=== PATIENT | female | born 1960 | race Two or more races ===

== ENCOUNTER 2024-08-30 00:36 | Inpatient (IN) | payer BC, OTHER ==
[~2024-08-30] VITALS: Ht 152.4 cm; Wt 70.5 kg
--- NOTE | 2024-08-30 02:23 | ED.PDOC ---
History of Present Illness HPI Comments 63 y/o overweight F, with no pertinent medical history, presents with c/c hypertension, with associated left chest wall pain, shortness of breath, lightheadedness, headache, and blurry vision. Patient reports on 1x month history of symptoms and coming to the ED, today, under advice of her PCP after checking her blood pressure at home at 207/88. No prior history of HTN or any medication use. She states being monitored by her aforementioned PCP for hypertension following previous visit for symptoms 2x week ago. 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 Denies any nausea, vomiting, fever, chills, or further associated symptoms. Upon arrival to ED triage, patient had a blood pressure of 184//59. 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 History: Denies all NEON SIGN INSTALLER Hx Family History Family History: Unknown Social History Smoker: Cigarettes Alcohol: Occasionally Drugs: Denies Drug Use Lives In: Home All Other Systems: Reviewed and Negative (Comprehensive systems review obtained and negative except for what is stated in the HPI.) Physical Exam General Appearance: No Apparent Distress, Normal HEENT: Normal ENT Inspection, Pharynx Normal, TMs Normal Neck: Full Range of Motion, Non-Tender, Normal, Normal Inspection Respiratory: Lungs Clear, No Accessory Muscle Use, No Respiratory Distress, Normal Breath Sounds Cardiovascular: No Edema, No JVD, No Murmur, No Gallop, Normal Peripheral Pulses, Regular Rate/Rhythm Breast Exam: Deferred Gastrointestinal: No Organomegaly, Non Tender, No Pulsatile Mass, Normal Bowel Sounds, Soft Genitalia: Deferred Pelvic: Deferred Rectal: Deferred Extremities: No calf tenderness, Normal capillary refill, Normal inspection, Normal range of motion, Non-tender, No pedal edema Musculoskeletal : Location: Left Extremity Location: Chest (chest wall ) Apperance: Normal, Other (relief of pain with pressure placement over left chest wall ) Neurologic: Alert, nurse plastics II-XII nml as Tested, No Motor Deficits, Normal Affect, Normal Mood, No Sensory Deficits Cerebellar Function: Normal Reflexes: Normal Skin: Dry, Normal Color, Warm Lymphatic: No Adenopathy Was a procedure done? Was a procedure done?: No EKG EKG : Pulse Rate (adult): 64 [place]: Normal Cardiac Rhythm: NSR Block: None Hypertrophy: None ST: Normal Differential Dx Considerations may include: hypertensive emergency, dehydration, electrolyte imbalance, IL, PE, ACS, URI, PNA, angina, among others X-Ray, Labs, Meds, VS Vital Signs Date Time Temp Pulse Resp B/P (MAP) Pulse Ox O2 Delivery O2 Flow Rate FiO2 08/30/24 02:23 64 08/30/24 02:21 63 08/30/24 01:30 64 08/30/24 00:36 97.7 67 18 184/59 (100) 97 97.7 Lab Test 08/30/24 02:08 Range/Units White Blood Count Pending Red Blood Count Pending Hemoglobin Pending Hematocrit Pending Mean Corpuscular Volume Pending Mean Corpuscular Hemoglobin Pending Mean Corpuscular Hemoglobin Concent Pending Red Cell Distribution Width Pending Platelet Count Pending Mean Platelet Volume Pending Neutrophils (%) (Auto) Pending Lymphocytes (%) (Auto) Pending Monocytes (%) (Auto) Pending Basophils (%) (Auto) Pending Neutrophils # (Auto) Pending Lymphocytes # (Auto) Pending Monocytes # (Auto) Pending Sodium Level Pending Potassium Level Pending Chloride Level Pending Carbon Dioxide Level Pending Anion Gap Pending Blood Urea Nitrogen Pending Creatinine Pending Glomerular Filtration Rate Calc Pending BUN/Creatinine Ratio Pending Serum Glucose Pending Calcium Level Pending Total Bilirubin Pending Aspartate Amino Transferase (AST) Pending Alanine Aminotransferase (ALT) Pending Alkaline Phosphatase Pending Troponin I High Sensitivity Pending Total Protein Pending Albumin Pending [place] [id number] Ph: [phone] DIAGNOSTIC IMAGING Diagnostic Imaging Report : [id number] Signed PATIENT: REFUGIO VILLEGAS ACCT: [id number] UNIT: [id number] : 1960 LOC: ER ROOM / BED: / AGE / SEX: 63 / F ADM STATUS: REG ER SERVICE [id number] ORDERING PHYSICIAN: JAMES UMANZOR PROCEDURE(s): CXR1 - CHEST XRAY 1 VIEW REASON: cp ORDER NUMBER(s): [id number], ACCESSION NUMBER(s): [id number] CHEST RADIOGRAPH Indication: cp Technique: Single frontal view of the chest was obtained COMPARISON: None FINDINGS: Lines and Tubes: None Lungs: Clear Pleura: No effusion. No pneumothorax. Cardiomediastinal contours: Unremarkable Bones: Unremarkable IMPRESSION: 1. No acute disease. ATED BY: ANKUR HERNANDEZ MD DICTATED DATE/TIME: 08/30/24228 SIGNED BY: ANKUR HERNANDEZ MD SIGNED DATE/TIME: 08/30/24228 CC: Time of 1ST Reevaluation: 02:30 Reevaluation 1ST: Unchanged Patient Education/Counseling: Diagnosis, Treatment, Other (need for admission ) Family Education/Counseling: No Family Present Assigned to Dr. guardado Additional Information Previous visits reviewed: December 11, 2015 encounter for metacarpal fracture The following tests were ordered, and results were reviewed by me: EKG, CBC, BMP, troponin, CXR Additional Information was gathered from interviewing the following independent historians: N/A I reviewed and agreed with the following test results read by other providers: CXR I discussed treatment and results with medical personnel and: patient SEPSIS Sepsis Screen Date sepsis recognized/suspect: Aug 30, 2024 Time Sepsis recognized/suspect: 35 Recent Procedure: No On Antibiotic Therapy: No Respiratory Rate >20: No Heart Rate >90: No Temp<36 C (96.8 F) or >38.3 C: No SBP <90 or MAP <65 mmHG: No New Acute Mental Status Change: No Is the patient on CPAP, BIPAP,: No Physician Orders Electrocardigram (08/30/24 01:34) Electrocardigram (08/30/24 02:34) Electrocardigram (08/30/24 04:34) Urinalysis (08/30/24 02:06) Comprehensive Metabolic Panel (08/30/24 02:03) Complete Blood Count (08/30/24 02:03) Troponin-I Hs (08/30/24 02:03) Chest Xray 1 View (08/30/24 02:03) Troponin-I Hs (08/30/24 03:03) Troponin-I Hs (08/30/24 05:03) Vital Signs Date Time Temp Pulse Resp B/P (MAP) Pulse Ox O2 Delivery O2 Flow Rate FiO2 08/30/24 02:23 64 08/30/24 02:21 63 08/30/24 01:30 64 08/30/24 00:36 97.7 67 18 184/59 (100) 97 97.7 Laboratory Tests Test 08/30/24 02:08 White Blood Count Pending Critical Care Note Critical Care Time?: No Stability Stability form required: No Heart Score Heart Score: Heart Score Response (Comments) Value History Moderate Suspicious 1 EKG Normal 0 Age 45-64 1 Risk Factors No known risk factors 0 Total 2 I personally scribed for JAMES UMANZORP ([email or web address]) on 08/30/24 at 02:23. Electronically submitted by Nasir Morris ([email or web address]). I personally scribed for JAMES UMANZOR PLATER APPRENTICE ([email or web address]) on 08/30/24 at 02:56. Electronically submitted by Nasir Morris ([email or web address]). JAMES UMANZOR PLATER APPRENTICE Aug 30, 2024 02:23
[2024-08-30 02:27] LABS: Hematocrit 42.6 % (36.0-46.0); Hemoglobin 14.6 g/dL (12.2-16.2); Mean Corpuscular Hemoglobin 30.6 pg (28.0-32.0); Mean Corpuscular Volume 89.2 fL (80.0-100.0); Nucleated Red Blood Cells % 0.1 %
--- NOTE | 2024-08-30 02:31 | DVH ---
CHEST RADIOGRAPH Indication: cp Technique: Single frontal view of the chest was obtained COMPARISON: None FINDINGS: Lines and Tubes: None Lungs: Clear Pleura: No effusion. No pneumothorax. Cardiomediastinal contours: Unremarkable Bones: Unremarkable IMPRESSION: 1. No acute disease.
[2024-08-30 02:43] LABS: Alanine Aminotransferase 39 U/L (7-40); Alkaline Phosphatase 87 U/L (46-116); Anion Gap 10 (5-15); BUN/Creatinine Ratio 15.2 (10.0-20.0); Blood Urea Nitrogen 10 mg/dL (9-23); Calcium 9.5 mg/dL (8.7-10.4); Carbon Dioxide 24 mmol/L (20-31); Chloride 106 mmol/L (98-107); Potassium 4.1 mmol/L (3.5-5.1); Sodium 140 mmol/L (136-145); Total Protein 7.4 g/dL (5.7-8.2)
[2024-08-30 02:44] LABS: Bilirubin, Total 0.4 mg/dL (0.2-1.0)
[2024-08-30 02:59] LABS: Albumin 4.8 g/dL (3.2-4.8); Glucose 132 mg/dL (74-106)
--- NOTE | 2024-08-30 03:24 | ECG ---
[facility] Test Date: 2024-08-30 Test Time: 01:30:57 Pat Name: REFUGIO VILLEGAS Department: ER Room: 0214T Gender: F Sales Architect: GLENYS : 1960 Requested By: EMERGENCY EMERGENCY Order Number: [id number] Reading MD: Memo Esqueda Measurements Intervals [place] Rate: 64 P: 56 VT: 122 QRS: 74 QRSD: 88 T: 50 QT: 403 QTc: 416 Interpretive Statements Sinus rhythm Electronically Signed On 08-31-2024 16:59:36 PDT by Memo Esqueda Please click the below link to view image of tracing.
--- NOTE | 2024-08-30 03:24 | ECG ---
[facility] Test Date: 2024-08-30 Test Time: 02:21:40 Pat Name: REFUGIO VILLEGAS Department: ED Room: 0214T Gender: F Physician Office Clin Asst: SUZANNE : 1960 Requested By: EMERGENCY EMERGENCY Order Number: [id number] Reading MD: Memo Esqueda Measurements Intervals [place] Rate: 63 P: 57 VT: 126 QRS: 78 QRSD: 92 T: 60 QT: 413 QTc: 423 Interpretive Statements Sinus rhythm Electronically Signed On 08-31-2024 16:59:37 PDT by Memo Esqueda Please click the below link to view image of tracing.
[2024-08-30 06:32] LABS: Urine Protein, UAD Negative (Negative)
[2024-08-30] MEDS ORDERED: DOCUSATE SOD 100 MG CAP PO PRN (07:15)
[2024-08-30] MEDS ORDERED: NITROGLYCERIN 0.4 MG SL TAB SL PRN (07:15)
[2024-08-30] MEDS ORDERED: ONDANSETRON HCL 4 MG/2 ML VIAL IV PRN (07:15)
[2024-08-30] MEDS ORDERED: MORPHINE SULFATE INJ 2 MG/ml SYRG IV PRN (07:15)
--- NOTE | 2024-08-30 07:43 | DVHHP2 ---
History of Present Illness Reason for Visit: High blood pressure History of Present Illness Carina Delvalle is a 63-year-old female with no significant past medical history, who came to the hospital for high blood pressure. About 1 month ago the patient began experiencing headaches, bilateral ankle edema, and blurred vision. She went to her primary care provider and found that she was having high blood pressure, SBP in the 180's. Her primary care provider did not start her on any medications, she told her to make lifestyle changes and to stop all salt. Patient was reassessed in 1 and 2 weeks from there. After 2 weeks her blood pressure was improving with SBP in 150's and her symptoms were intermittent. Her primary care provider told her she was not going to start her on any medications and to continue with the lifestyle modifications. Yesterday her symptoms came back and were worse. She took her blood pressure and it was over SBP 200. She called her primary care provider and was told to come to the hospital. Cardiovascular: HTN Past Surgical History: (x 3), Tonsillectomy Smoke: Quit (1 year ago) ALCOHOL: occassional Drugs: None Lives: with Family Domestic Violence: Neg Review of Systems Constitutional: Yes: Weakness, Other (headache, blurred vision); No: Fever, Chills, Sweats, Malaise Eyes: No: Pain, Vision change, Conjunctivae inflammation, Eyelid inflammation, Other, Redness ENT: No: Ear pain, Ear discharge, Nose pain, Nose discharge, Nose congestion, Mouth pain, Mouth swelling, Throat pain, Throat swelling, Other Respiratory: No: Cough, Dry, Shortness of breath, SOB with excertion, Wheezing, Hemoptysis, Pleuritic Pain, Sputum, Wheezing, Other Cardiovascular: No: Chest Pain, Palpitations, Orthopnea, Paroxysmal Noc. Dyspnea, Edema, Lt Headedness, Other Gastrointestinal: No: Nausea, Vomiting, Abdominal Pain, Diarrhea, Constipation, Melena, Hematochezia, Other Genitourinary: No Dysuria, No Frequency, No Incontinence, No Hematuria, No Retention, No Other Musculoskeletal: No: other, neck pain, shoulder pain, arm pain, back pain, hand pain, leg pain, foot pain Skin: No: Rash, Lesions, Jaundice, Bruising, Other Neurological: No: Weakness, Numbness, Incoordination, Change in speech, Confusion, Seizures, Other Allergies: Coded Allergies: NO KNOWN ALLERGIES (Unverified , 12/11/15) Exam Vital Signs Vital Signs Date Time Temp Pulse Resp B/P (MAP) Pulse Ox O2 Delivery O2 Flow Rate FiO2 08/30/24 06:34 97.4 69 16 146/52 (83) 97 97.4 General Appearance: Alert, Oriented X3, Cooperative, mild distress HEENT: Atraumatic, PERRLA, Mucous membr. moist/pink Respiratory: Clear to auscultation, Normal air movement Cardiovascular: Normal S1, Normal S2, Other (SB-SR) Abdominal: Normal bowel sounds, Soft, No tenderness, No hepatospenomegaly Extremities: No clubbing, No cyanosis, No edema, Normal pulses, No tenderness/swelling Skin: No rashes, No breakdown, No significant lesion Neuro: Normal gait, Normal speech, Strength at 5/5 X4 ext Psych/Mental Status: Mental status NL, Mood NL Labs/Xrays Labs Test 08/30/24 06:05 08/30/24 05:14 08/30/24 02:08 Range/Units Urine Color Light-yellow Yellow Urine Clarity Clear Clear Urine pH 5.0 5.0-9.0 Urine Specific [place] 1.013 1.001-1.035 Urine Protein Negative Negative Urine Ketones Negative Negative Urine Blood Negative Negative /uL Urine Nitrite Negative Negative Urine Bilirubin Negative Negative Urine Urobilinogen Normal Negative mg/dL Urine Leukocyte Esterase Negative Negative /uL Urine RBC None seen 0 - 4 /hpf Urine Microscopic WBC 1 0-5 /HPF Urine Squamous Epithelial Cells None seen <5 /hpf Urine Bacteria None seen None Seen /hpf Urine Mucus Few None Seen Urine Glucose Normal Normal mg/dL Troponin I High Sensitivity < 3 L </=34 ng/L White Blood Count 9.1 4.4-10.8 10^3/uL Red Blood Count 4.77 4.0-5.20 10^6/uL Hemoglobin 14.6 12.2-16.2 g/dL Hematocrit 42.6 36.0-46.0 % Mean Corpuscular Volume 89.2 80.0-100.0 fL Mean Corpuscular Hemoglobin 30.6 28.0-32.0 pg Mean Corpuscular Hemoglobin Concent 34.3 32.0-36.0 g/dL Red Cell Distribution Width 13.3 11.8-14.3 % Platelet Count 223 140-450 10^3/uL Mean Platelet Volume 10.2 6.9-10.8 fL Neutrophils (%) (Auto) 58.6 37.0-80.0 % Lymphocytes (%) (Auto) 30.9 10.0-50.0 % Monocytes (%) (Auto) 6.1 0.0-12.0 % Eosinophils (%) (Auto) 3.1 0.0-7.0 % Basophils (%) (Auto) 1.3 0.0-2.0 % Neutrophils # (Auto) 5.3 1.6-8.6 10 ^3/uL Lymphocytes # (Auto) 2.8 0.4-5.4 10 ^3/uL Monocytes # (Auto) 0.6 0-1.3 10 ^3/uL Eosinophils # (Auto) 0.3 0-0.8 10 ^3/uL Basophils # (Auto) 0.1 0-0.2 10 ^3/uL Nucleated Red Blood Cells 0.1 % Sodium Level 140 136-145 mmol/L Potassium Level 4.1 3.5-5.1 mmol/L Chloride Level 106 98-107 mmol/L Carbon Dioxide Level 24 20-31 mmol/L Anion Gap 10 5-15 Blood Urea Nitrogen 10 9-23 mg/dL Creatinine 0.66 0.550-1.02 mg/dL Glomerular Filtration Rate Calc 100 >90 mL/min BUN/Creatinine Ratio 15.2 10.0-20.0 Serum Glucose 132 H 74-106 mg/dL Calcium Level 9.5 8.7-10.4 mg/dL Total Bilirubin 0.4 0.2-1.0 mg/dL Aspartate Amino Transferase (AST) 29 13-40 U/L Alanine Aminotransferase (ALT) 39 7-40 U/L Alkaline Phosphatase 87 46-116 U/L Total Protein 7.4 5.7-8.2 g/dL Albumin 4.8 3.2-4.8 g/dL CHEST RADIOGRAPH FINDINGS: Lines and Tubes: None Lungs: Clear Pleura: No effusion. No pneumothorax. Cardiomediastinal contours: Unremarkable Bones: Unremarkable IMPRESSION: 1. No acute disease. SEPSIS Sepsis Screen Date sepsis recognized/suspect: Aug 30, 2024 Time Sepsis recognized/suspect: 0036 Recent Procedure: No On Antibiotic Therapy: No Respiratory Rate >20: No Heart Rate >90: No Temp<36 C (96.8 F) or >38.3 C: No SBP <90 or MAP <65 mmHG: No New Acute Mental Status Change: No Is the patient on CPAP, BIPAP,: No Physician Orders Electrocardigram (08/30/24 04:34) Chest Xray 1 View (08/30/24 02:03) Admit (08/30/24 07:08) Code Status (08/30/24 07:08) 2 Gm Sodium Diet (08/30/24 Breakfast) Hydrocodone-Acet 5/325mg Tab (Fisher 32 (08/30/24 07:15) Ondansetron Hcl (Zofran) (08/30/24 07:15) Docusate Sodium Capsule (Colace Capsule) (08/30/24 07:15) Complete Blood Count (08/31/24 04:00) Comprehensive Metabolic Panel (08/31/24 04:00) Echo 2d Mode Cardiac Dop (08/30/24 07:08) Condition: Serious (08/30/24 07:08) Acetaminophen Tablet (Tylenol Tablet) (08/30/24 07:15) Nitroglycerin Sublingual (Ntrostat Subli (08/30/24 07:15) Vital Signs Date Time Temp Pulse Resp B/P (MAP) Pulse Ox O2 Delivery O2 Flow Rate FiO2 08/30/24 06:34 97.4 69 16 146/52 (83) 97 97.4 08/30/24 03:49 97.8 61 18 159/64 (95) 96 97.8 08/30/24 02:23 64 08/30/24 02:21 63 08/30/24 01:30 64 08/30/24 00:36 97.7 67 18 184/59 (100) 97 97.7 Laboratory Tests Test 08/30/24 02:08 White Blood Count 9.1 10^3/uL (4.4-10.8) Assessment/Plan Assessment/Plan Assessment: Uncontrolled hypertension, Dehydration, Intractable headache, Plan: Admit to Tele, ECHO, Antihypertensives, PRN antihypertensives, IV hydration, Consider cardiology consult if symptoms do not improve, Toradol for headache, Plan discussed with: Patient, Spouse My Orders Orders - LYNDA SYED Procedure Category Date Status Time Admit ADMIT 08/30/24 Verified 07:08 Code Status CODE 08/30/24 Verified 07:08 2 Gm Sodium Diet DIET 08/30/24 Verified Breakfast Hydrocodone-Acet PHA 08/30/24 Verified 5/325mg Tab (Fisher 07:15 Ondansetron Hcl PHA 08/30/24 Verified (Zofran) 07:15 Docusate Sodium PHA 08/30/24 Verified Capsule (Colace 07:15 Complete Blood Count LAB 08/31/24 Verified 04:00 Comprehensive LAB 08/31/24 Verified Metabolic Panel 04:00 Echo 2d Mode Cardiac US 08/30/24 Verified DOP 07:08 Condition: Serious DANIELE 08/30/24 Verified 07:08 Acetaminophen Tablet PHA 08/30/24 Verified (Tylenol Tablet) 07:15 Nitroglycerin PHA 08/30/24 Verified Sublingual (Ntrostat 07:15 Date of Service: Aug 30, 2024 Billing Provider: LYNDA SYED Common Visit Codes: [id number] INP/OBS CARE (MOD) LYNDA SYED Aug 30, 2024 07:43
[2024-08-30] MEDS: SODIUM CHLORIDE 0.9% 1,000 ML IV ONE (08:16)
[2024-08-30] MEDS: KETOROLAC TROMETH 30 MG/ML 1ML VIAL IV ONE (08:16)
[2024-08-30] MEDS: hydroCHLOROthiazide 25 MG TAB PO ONE (08:17)
[2024-08-30] MEDS: PANTOPRAZOLE 40 MG/10 ML VIAL INJ IV ONE (10:54)
[2024-08-30] MEDS: HYDROcodone-ACET 5/325MG TAB PO PRN (11:27)
[2024-08-30 12:13] VITALS: PULSE 76; RESP 17
[2024-08-30 22:16] VITALS: BP 157/77; PULSE 61; RESP 18; TEMP 97.6; O2SAT 98
[2024-08-30] MEDS: hydrALAZINE HCL 20 MG/ML VL IV PRN (22:24)
[2024-08-30] MEDS: ACETAMINOPHEN 325 MG TAB PO PRN (22:26)
[2024-08-31] VITALS (8 sets, daily range): BP systolic 116–144; BP diastolic 59–69; PULSE 66–80; RESP 16–18; TEMP 97–98.1; O2SAT 96–98
[2024-08-31 05:33] LABS: Hematocrit 38.4 % (36.0-46.0); Hemoglobin 13.1 g/dL (12.2-16.2); Mean Corpuscular Hemoglobin 30.9 pg (28.0-32.0); Mean Corpuscular Volume 90.7 fL (80.0-100.0); Nucleated Red Blood Cells % 0.0 %
[2024-08-31] MEDS: PANTOPRAZOLE 40 MG TAB PO SCH (05:35)
[2024-08-31 05:49] LABS: Alanine Aminotransferase 33 U/L (7-40); Alkaline Phosphatase 72 U/L (46-116); Anion Gap 10 (5-15); BUN/Creatinine Ratio 20.0 (10.0-20.0); Blood Urea Nitrogen 17 mg/dL (9-23); Calcium 9.7 mg/dL (8.7-10.4); Carbon Dioxide 26 mmol/L (20-31); Chloride 107 mmol/L (98-107); Potassium 3.9 mmol/L (3.5-5.1); Sodium 143 mmol/L (136-145); Total Protein 6.2 g/dL (5.7-8.2)
[2024-08-31 05:50] LABS: Albumin 4.0 g/dL (3.2-4.8); Bilirubin, Total 0.3 mg/dL (0.2-1.0)
[2024-08-31 05:58] LABS: Glucose 138 mg/dL (74-106)
--- NOTE | 2024-08-31 09:42 | DVHSR ---
APPROVED REPORT EXAM: Two-dimensional and M-mode echocardiogram with Doppler and color Doppler. Blood Pressure: 146/52 mmHg INDICATION Uncontrolled hypertension RISK FACTORS Height: 5'0", DIMENSIONS LVDd3.7 (3.8-5.7cm)LA (2D)2.6 (1.9-4.0cm)Aortic Root2.7 (2.0-3.7cm) LVDs2.5 (2.5-4.0cm)LA (MM) (1.9-4.0cm)Aortic Cusp Exc1.6 (1.5-2.0cm) EF (%) 65.0 (55-70%)Rt. Atrium3.0 (1.9-4.0cm)Asc. Aorta cm IVSd1.0 (0.7-1.1cm)RV (D)3.4 (1.8-2.4cm) PWd1.0 (0.7-1.1cm) Mitral Valve MitralMitral Stenosis E wave0.64m/sMV Mean GR.mmHg A wave1.11m/sMV Peak GR.mmHg E/A ratio0.62D MVAcm2 DECEL [id number] 1/2 Timems Aortic Valve Aortic ValveAortic Stenosis V11.27m/Ruthie Mean GR.5mmHg V21.71m/Ruthie Peak GR.12mmHg LVOT Diameter1.7 (1.8-2.4cm)Doppler AVA1.68cm2 Pulmonic Valve V21.18m/s Tricuspid Valve TR Velocity2.53m/s [id number] Other Information Technically limited study due to body habitus. Conclusion LV EF IS 65% SLIGHTLY DILATED LA MODERATELY CALCIFIED AORTIC LEAFLETS NORMAL MV,TV AND PV NORMAL RV FUNCTION AND SIZE NO EFFUSION
[2024-09-01] VITALS (8 sets, daily range): BP systolic 116–141; BP diastolic 59–70; PULSE 64–77; RESP 15–19; TEMP 97.8–98.9; O2SAT 96–100
--- NOTE | 2024-09-01 14:26 | DVHPN2 ---
Reviewed: Care Plan, H&P, Labs, Medications, Previous Orders, Radiology Changes from previous H/P or p: No Changes General: Per HPI Eyes: No Pain, No Vision change, No Conjunctivae inflammation, No Eyelid inflammation, No Other, No Redness ENT: No Ear pain, No Ear discharge, No Nose pain, No Nose discharge, No Nose congestion, No Mouth pain, No Mouth swelling, No Throat pain, No Throat swelling, No Other Cardiovascular: No Chest Pain, No Palpitations, No Orthopnea, No Paroxysmal Noc. Dyspnea, No Edema, No Lt Headedness, No Other Respiratory: No Cough, No Dry, No Shortness of breath, No SOB with excertion, No Wheezing, No Hemoptysis, No Pleuritic Pain, No Sputum, No Other Gastrointestinal: No Nausea, No Vomiting, No Abdominal Pain, No Diarrhea, No Constipation, No Melena, No Hematochezia, No Other Genitourinary: No Dysuria, No Frequency, No Incontinence, No Hematuria, No Retention, No Other Musculoskeletal: No other, No neck pain, No shoulder pain, No arm pain, No back pain, No hand pain, No leg pain, No foot pain Skin: No Rash, No Lesions, No Jaundice, No Bruising, No Other Objective Vitals Vital Signs Date Time Temp Pulse Resp B/P (MAP) Pulse Ox O2 Delivery O2 Flow Rate FiO2 09/01/24 12:42 98.3 64 18 138/64 (88) 98 98.3 09/01/24 08:00 Room Air* 0 21 Intake/Output Intake and Output 09/01/24 07:00 Intake Total 1250 ml Balance 1250 ml Intake Oral 1250 ml # Voids 5 # Bowel Movements 2 General Appearance: Alert, Oriented X3, Cooperative Cardiovascular: Normal S2 Abdomen: Normal bowel sounds Medications Current Medications Medications Dose Ordered Sig/Rojelio Route Start Time Stop Time Status Last Admin Dose Admin Acetaminophen/ Hydrocodone Bitart 1 tab Q4HP PRN PO 08/30/24 07:15 08/30/24 17:23 1 TAB Ondansetron HCl 4 mg Q4HP PRN IV 08/30/24 07:15 Docusate Sodium 100 mg BIDPRN PRN PO 08/30/24 07:15 Acetaminophen 650 mg Q6HP PRN PO 08/30/24 07:15 09/01/24 09:13 650 MG Nitroglycerin 0.4 mg Q5MINP PRN SL 08/30/24 07:15 Morphine Sulfate 2 mg Q30M PRN IV 08/30/24 07:15 Hydralazine HCl 10 mg Q6HP PRN IV 08/30/24 07:45 08/30/24 22:24 10 MG Pantoprazole Sodium 40 mg DAILY@0600 PO 08/31/24 06:00 09/01/24 05:42 40 MG Nifedipine 30 mg DAILY PO 08/31/24 10:00 09/01/24 09:13 30 MG Laboratory Results Laboratory Tests 08/31/24 04:23 Urinalysis Test 08/30/24 06:05 Urine Color Light-yellow (Yellow) Urine Clarity Clear (Clear) Urine pH 5.0 (5.0-9.0) Urine Specific [place] 1.013 (1.001-1.035) Urine Protein Negative (Negative) Urine Ketones Negative (Negative) Urine Blood Negative /uL (Negative) Urine Nitrite Negative (Negative) Urine Bilirubin Negative (Negative) Urine Urobilinogen Normal mg/dL (Negative) Urine Leukocyte Esterase Negative /uL (Negative) Urine RBC None seen /hpf (0 - 4) Urine Microscopic WBC 1 /HPF (0-5) Urine Squamous Epithelial Cells None seen /hpf (<5) Urine Bacteria None seen /hpf (None Seen) Urine Mucus Few (None Seen) Urine Glucose Normal mg/dL (Normal) Assessment/Plan Assessment/Plan Carina Delvalle is a 63-year-old female with no significant past medical history, who came to the hospital for high blood pressure. About 1 month ago the patient began experiencing headaches, bilateral ankle edema, and blurred vision. She went to her primary care provider and found that she was having high blood pressure, SBP in the 180's. Her primary care provider did not start her on any medications, she told her to make lifestyle changes and to stop all salt. Patient was reassessed in 1 and 2 weeks from there. After 2 weeks her blood pressure was improving with SBP in 150's and her symptoms were intermittent. Her primary care provider told her she was not going to start her on any medications and to continue with the lifestyle modifications. Yesterday her symptoms came back and were worse. She took her blood pressure and it was over SBP 200. She called her primary care provider and was told to come to the hospital. Uncontrolled hypertension, Dehydration, Intractable headache, dizziness, intractable 08/31/2024 pt to be monitored for her headache blood pressure is improving 09/01/2024 pt complains she is feeling more dizzy will consult neurology obtaining CT head w/o contrast Plan discussed with: Patient Date of Service: Sep 01, 2024 Billing Provider: BARBIE SHANKAR DO Common Visit Codes: [id number] INP/OBS CARE(HIGH) BARBIE SHANKAR DO Sep 01, 2024 14:26
--- NOTE | 2024-09-01 14:26 | DVHPN2 ---
Reviewed: Care Plan, H&P, Labs, Medications, Previous Orders, Radiology Changes from previous H/P or p: No Changes General: Per HPI Eyes: No Pain, No Vision change, No Conjunctivae inflammation, No Eyelid inflammation, No Other, No Redness ENT: No Ear pain, No Ear discharge, No Nose pain, No Nose discharge, No Nose congestion, No Mouth pain, No Mouth swelling, No Throat pain, No Throat swelling, No Other Cardiovascular: No Chest Pain, No Palpitations, No Orthopnea, No Paroxysmal Noc. Dyspnea, No Edema, No Lt Headedness, No Other Respiratory: No Cough, No Dry, No Shortness of breath, No SOB with excertion, No Wheezing, No Hemoptysis, No Pleuritic Pain, No Sputum, No Other Gastrointestinal: No Nausea, No Vomiting, No Abdominal Pain, No Diarrhea, No Constipation, No Melena, No Hematochezia, No Other Genitourinary: No Dysuria, No Frequency, No Incontinence, No Hematuria, No Retention, No Other Musculoskeletal: No other, No neck pain, No shoulder pain, No arm pain, No back pain, No hand pain, No leg pain, No foot pain Skin: No Rash, No Lesions, No Jaundice, No Bruising, No Other Objective Vitals Vital Signs Date Time Temp Pulse Resp B/P (MAP) Pulse Ox O2 Delivery O2 Flow Rate FiO2 09/01/24 12:42 98.3 64 18 138/64 (88) 98 98.3 09/01/24 08:00 Room Air* 0 21 Intake/Output Intake and Output 09/01/24 07:00 Intake Total 1250 ml Balance 1250 ml Intake Oral 1250 ml # Voids 5 # Bowel Movements 2 General Appearance: Alert, Oriented X3, Cooperative Cardiovascular: Normal S2 Abdomen: Normal bowel sounds Medications Current Medications Medications Dose Ordered Sig/Rojelio Route Start Time Stop Time Status Last Admin Dose Admin Acetaminophen/ Hydrocodone Bitart 1 tab Q4HP PRN PO 08/30/24 07:15 08/30/24 17:23 1 TAB Ondansetron HCl 4 mg Q4HP PRN IV 08/30/24 07:15 Docusate Sodium 100 mg BIDPRN PRN PO 08/30/24 07:15 Acetaminophen 650 mg Q6HP PRN PO 08/30/24 07:15 09/01/24 09:13 650 MG Nitroglycerin 0.4 mg Q5MINP PRN SL 08/30/24 07:15 Morphine Sulfate 2 mg Q30M PRN IV 08/30/24 07:15 Hydralazine HCl 10 mg Q6HP PRN IV 08/30/24 07:45 08/30/24 22:24 10 MG Pantoprazole Sodium 40 mg DAILY@0600 PO 08/31/24 06:00 09/01/24 05:42 40 MG Nifedipine 30 mg DAILY PO 08/31/24 10:00 09/01/24 09:13 30 MG Laboratory Results Laboratory Tests 08/31/24 04:23 Urinalysis Test 08/30/24 06:05 Urine Color Light-yellow (Yellow) Urine Clarity Clear (Clear) Urine pH 5.0 (5.0-9.0) Urine Specific [place] 1.013 (1.001-1.035) Urine Protein Negative (Negative) Urine Ketones Negative (Negative) Urine Blood Negative /uL (Negative) Urine Nitrite Negative (Negative) Urine Bilirubin Negative (Negative) Urine Urobilinogen Normal mg/dL (Negative) Urine Leukocyte Esterase Negative /uL (Negative) Urine RBC None seen /hpf (0 - 4) Urine Microscopic WBC 1 /HPF (0-5) Urine Squamous Epithelial Cells None seen /hpf (<5) Urine Bacteria None seen /hpf (None Seen) Urine Mucus Few (None Seen) Urine Glucose Normal mg/dL (Normal) Labs and/or images reviewed: Labs reviewed by me, Image(s) reviewed by me Assessment/Plan Assessment/Plan Carina Delvalle is a 63-year-old female with no significant past medical history, who came to the hospital for high blood pressure. About 1 month ago the patient began experiencing headaches, bilateral ankle edema, and blurred vision. She went to her primary care provider and found that she was having high blood pressure, SBP in the 180's. Her primary care provider did not start her on any medications, she told her to make lifestyle changes and to stop all salt. Patient was reassessed in 1 and 2 weeks from there. After 2 weeks her blood pressure was improving with SBP in 150's and her symptoms were intermittent. Her primary care provider told her she was not going to start her on any medications and to continue with the lifestyle modifications. Yesterday her symptoms came back and were worse. She took her blood pressure and it was over SBP 200. She called her primary care provider and was told to come to the hospital. Uncontrolled hypertension, Dehydration, Intractable headache, dizziness, intractable 08/31/2024 pt to be monitored for her headache blood pressure is improving Plan discussed with: Patient, Spouse Date of Service: Aug 31, 2024 Billing Provider: BARBIE SHANKAR DO Common Visit Codes: [id number] INP/OBS CARE(HIGH) BARBIE SHANKAR DO Sep 01, 2024 14:26
[2024-09-01] MEDS ORDERED: IBUPROFEN 800 MG TAB PO PRN (14:30)
--- NOTE | 2024-09-01 15:42 | DVH ---
EXAM DESCRIPTION: CT HEAD WITHOUT CONTRAST CLINICAL HISTORY: intractable headache COMPARISON: None TECHNIQUE: Noncontrast CT head was performed. Coronal MPR images were generated. CTDI/ DLP = 50.94 mGy / 900.38 mGy.cm. Dose reduction technique with one or more of the following methods was performed: Automated exposure control, adjustment of the mA and/or kV according to patient size, use of iterative reconstruction te [place]nique. FINDINGS: No evidence of acute intracranial hemorrhage. No mass effect. No extra-axial collections of fluid or blood. The brain is normal in attenuation. The ventricles and sulci are normal in size for age. Clear basal cisterns. The calvarium is intact. The soft tissues are unremarkable. The paranasal sinuses are clear. The right mastoid air cells are clear. There is sclerosis of the lef t mastoid with large defect at the superior wall of the external auditory canal extending into the ma stoid. IMPRESSION: No acute findings. 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 Recommend further evaluation with CT left temporal bone.
--- NOTE | 2024-09-01 21:52 | DVHINCON2 ---
Date of service: Sep 01, [address] Reeder Reason for Consultation Headache History of Present Illness Ms. Delvalle is not sure left-handed female otherwise healthy, she came to the [facility] with a chief complaint of left chest pain, but she also has other medical problems. At this time, she is alert and fully oriented, she provided the following history Starting around 08/18/2024, she has intermittent pressure headache in the occipital region, bilateral ears; she may have headache when she is resting in the bed, sitting in the chair, or standing or walking around, this may happened in the evening or during the daytime. He also has associated blurry vision, lightheadedness when she is sitting in the bed. She has no focal weakness numbness in the extremities. She denies similar headache previously, she has no history of headache when he was younger. She denies recent chills, fever, nausea, vomiting, coughing or other acute illness. At home, his blood pressure was 207/88 mmHg, 217/? mmHg About one month ago/the end of 07/2024, he had intermittent similar headache for a few days, he took Tylenol with good symptom control. In his doctor office, his blood pressure was 160/? mmHg. His doctor suspected hypertension related headache Urinalysis, 08/30/2024: Unremarkable CBC, 08/31/24: Unremarkable CMP, 08/31/2024: Unremarkable CT head, : No acute findings. 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 Recommend further evaluation with CT left temporal bone. Past Medical History No major medical problems Past Surgical History , left ear surgery, tonsillectomy Family History: Patient reports no known family medical history. Family History Diabetes, coronary artery disease, heart attack, kidney disease Social History She was tobacco smoker, she denies a history of alcohol or recreational substance abuse Allergies: Coded Allergies: NO KNOWN ALLERGIES (Unverified , 12/11/15) Home Meds No Active Prescriptions or Reported Meds Current Medications Current Medications Medications (Trade) Dose Ordered Sig/Rojelio Route PRN Reason Start Time Stop Time Status Last Admin Ibuprofen (Motrin Tablet) 800 mg Q8HP PRN PO MODERATE PAIN (4-6 PAIN SCALE) 09/01/24 14:30 Review of Systems As above, the other systems are negative Vital Signs Vital Signs Date Time Temp Pulse Resp B/P (MAP) Pulse Ox O2 Delivery O2 Flow Rate FiO2 09/01/24 21:00 98.2 77 18 127/66 (86) 100 98.2 09/01/24 20:00 Room Air* 0 21 Physical Exam GENERAL EXAM: General: the patient is well developed and nourished. No acute distress. HEENT: Normocephalic, no tenderness to palpation in the scalp, tenderness to palpation in bilateral neck, neck is supple, no carotid bruits. No mass RESPIRATORY: Normal respiratory effort with symmetrical lung expansion. Lungs clear to auscultation. CARDIOVASCULAR: Regular rate and rhythm with no murmurs. S1, S2. ABDOMEN: Soft, nontender, normal bowel sound NEUROLOGICAL: MENTAL STATUS: Awake and alert. Oriented to person, place, time and general circumstances. Able to give personal history SPEECH, LANGUAGE, HIGHER CORTICAL FUNCTION: no aphasia or dysathria. CRANIAL NERVES: #2: Intact visual m[place] to confrontation. The optic discs were sharp #3,4,6: Pupils are equal, round and reactive. EOMs full and conjugate. No nystagmus. #5: Facial sensation intact in all three divisions bilaterally. Mandibular strength intact. #7: Facial muscles symmetrical and strength intact. #8: Hearing grossly normal to voice. #9,10: Uvula and soft palate rise in the midline. Swallow and voice are normal. #11: Trapezius and sternomastoid strength intact bilaterally. #12: Tongue midline. No fasciculations or atrophy. SENSATION: Sensation to touch and pinprick is normal. MOTOR: Normal tone in the upper and lower extremity. Normal muscle bulk. No fasciculations. No abnormal movements or posturing. Muscle strength of the major groups in the upper extremities is 5/5. Muscle strength of the major groups in the lower extremities is 5/5. REFLEXES: Deep tendon reflexes are symmetrical. No pathological reflexes. CEREBELLAR/COORDINATION: Finger to nose is normal bilaterally. GAIT/STATION: deferred. Labs/Diagnostic Data Labs Test 08/31/24 04:23 08/30/24 06:05 08/30/24 05:14 Range/Units White Blood Count 6.7 # 4.4-10.8 10^3/uL Red Blood Count 4.23 4.0-5.20 10^6/uL Hemoglobin 13.1 12.2-16.2 g/dL Hematocrit 38.4 36.0-46.0 % Mean Corpuscular Volume 90.7 80.0-100.0 fL Mean Corpuscular Hemoglobin 30.9 28.0-32.0 pg Mean Corpuscular Hemoglobin Concent 34.0 32.0-36.0 g/dL Red Cell Distribution Width 13.2 11.8-14.3 % Platelet Count 202 140-450 10^3/uL Mean Platelet Volume 10.4 6.9-10.8 fL Neutrophils (%) (Auto) 56.5 37.0-80.0 % Lymphocytes (%) (Auto) 32.2 10.0-50.0 % Monocytes (%) (Auto) 6.7 0.0-12.0 % Eosinophils (%) (Auto) 3.7 0.0-7.0 % Basophils (%) (Auto) 0.9 0.0-2.0 % Neutrophils # (Auto) 3.8 1.6-8.6 10 ^3/uL Lymphocytes # (Auto) 2.2 0.4-5.4 10 ^3/uL Monocytes # (Auto) 0.4 0-1.3 10 ^3/uL Eosinophils # (Auto) 0.3 0-0.8 10 ^3/uL Basophils # (Auto) 0.1 0-0.2 10 ^3/uL Nucleated Red Blood Cells 0.0 % Sodium Level 143 136-145 mmol/L Potassium Level 3.9 3.5-5.1 mmol/L Chloride Level 107 98-107 mmol/L Carbon Dioxide Level 26 20-31 mmol/L Anion Gap 10 5-15 Blood Urea Nitrogen 17 9-23 mg/dL Creatinine 0.85 0.550-1.02 mg/dL Glomerular Filtration Rate Calc 78 >90 mL/min BUN/Creatinine Ratio 20.0 10.0-20.0 Serum Glucose 138 H 74-106 mg/dL Calcium Level 9.7 8.7-10.4 mg/dL Total Bilirubin 0.3 0.2-1.0 mg/dL Aspartate Amino Transferase (AST) 23 13-40 U/L Alanine Aminotransferase (ALT) 33 7-40 U/L Alkaline Phosphatase 72 46-116 U/L Total Protein 6.2 5.7-8.2 g/dL Albumin 4.0 3.2-4.8 g/dL Urine Color Light-yellow Yellow Urine Clarity Clear Clear Urine pH 5.0 5.0-9.0 Urine Specific [place] 1.013 1.001-1.035 Urine Protein Negative Negative Urine Ketones Negative Negative Urine Blood Negative Negative /uL Urine Nitrite Negative Negative Urine Bilirubin Negative Negative Urine Urobilinogen Normal Negative mg/dL Urine Leukocyte Esterase Negative Negative /uL Urine RBC None seen 0 - 4 /hpf Urine Microscopic WBC 1 0-5 /HPF Urine Squamous Epithelial Cells None seen <5 /hpf Urine Bacteria None seen None Seen /hpf Urine Mucus Few None Seen Urine Glucose Normal Normal mg/dL Troponin I High Sensitivity < 3 L </=34 ng/L Assessment New onset headache, blurry vision Hypertensive encephalopathy Hypertensive urgency Posterior reversible encephalopathy syndrome Rule out structural intracranial pathology Hypertension Plan/Recommendation Monitoring Supportive treatment Telemetry MR brain scan Blood pressure control Current pain management More recommendation per clinical course Progress: Poor This medical document was created using an electronic medical record system with [employer] computerized dictation system. Although this document has been carefully reviewed, there may still be some phonetic and typographical errors. These areas are purely typographical due to imperfections of the software programs, and do not reflect any compromise in the patient's medical care. Plan discussed with: Patient, Other RADHA KEMP MD Sep 01, 2024 21:51
[2024-09-01] MEDS ORDERED: LORazepam 2MG/ML-1ML VIAL IV PRN (22:15)
[2024-09-02 01:00] VITALS: BP 129/70; PULSE 79; RESP 18; TEMP 98; O2SAT 99
[2024-09-02 05:00] VITALS: BP 131/72; PULSE 92; RESP 18; TEMP 98.2; O2SAT 95
[2024-09-02 08:00] VITALS: PULSE 69; PULSE 70; RESP 18; O2SAT 97
--- NOTE | 2024-09-02 08:59 | DVH ---
CLINICAL INDICATION: Pressure COMPARISON: CT dated 09/01/2024. TECHNIQUE: Multisequence multiplanar MRI images of the brain were obtained without contrast. FINDINGS: No acute infarct or hemorrhage. No mass or midline shift. Ventricles and sulci are within normal limits. Basal cisterns are patent. Cerebellum, brainstem, and midline structures are within no rmal limits. Paranasal sinuses are clear. Orbits are grossly unremarkable. IMPRESSION: No evidence of acute intracranial abnormality.
[2024-09-02 09:00] VITALS: BP 157/76; PULSE 70; RESP 14; TEMP 97.5; O2SAT 97
--- NOTE | 2024-09-02 11:06 | DVHPN2 ---
Reviewed: Care Plan, H&P, Labs, Medications, Previous Orders, Radiology Changes from previous H/P or p: No Changes General: Per HPI Eyes: No Pain, No Vision change, No Conjunctivae inflammation, No Eyelid inflammation, No Other, No Redness ENT: No Ear pain, No Ear discharge, No Nose pain, No Nose discharge, No Nose congestion, No Mouth pain, No Mouth swelling, No Throat pain, No Throat swelling, No Other Cardiovascular: No Chest Pain, No Palpitations, No Orthopnea, No Paroxysmal Noc. Dyspnea, No Edema, No Lt Headedness, No Other Respiratory: No Cough, No Dry, No Shortness of breath, No SOB with excertion, No Wheezing, No Hemoptysis, No Pleuritic Pain, No Sputum, No Other Gastrointestinal: No Nausea, No Vomiting, No Abdominal Pain, No Diarrhea, No Constipation, No Melena, No Hematochezia, No Other Genitourinary: No Dysuria, No Frequency, No Incontinence, No Hematuria, No Retention, No Other Musculoskeletal: No other, No neck pain, No shoulder pain, No arm pain, No back pain, No hand pain, No leg pain, No foot pain Skin: No Rash, No Lesions, No Jaundice, No Bruising, No Other Objective Vitals Vital Signs Date Time Temp Pulse Resp B/P (MAP) Pulse Ox O2 Delivery O2 Flow Rate FiO2 09/02/24 09:50 157/76 09/02/24 09:00 97.5 70 14 97 97.5 09/02/24 08:00 Room Air* 0 21 Intake/Output Intake and Output 09/02/24 07:00 Intake Total 1520 ml Balance 1520 ml Intake Oral 1520 ml # Voids 7 # Bowel Movements 2 General Appearance: Alert, Oriented X3, Cooperative Cardiovascular: Normal S2 Abdomen: Normal bowel sounds Medications Current Medications Medications Dose Ordered Sig/Rojelio Route Start Time Stop Time Status Last Admin Dose Admin Acetaminophen/ Hydrocodone Bitart 1 tab Q4HP PRN PO 08/30/24 07:15 09/02/24 09:48 1 TAB Ondansetron HCl 4 mg Q4HP PRN IV 08/30/24 07:15 Docusate Sodium 100 mg BIDPRN PRN PO 08/30/24 07:15 Acetaminophen 650 mg Q6HP PRN PO 08/30/24 07:15 09/01/24 09:13 650 MG Nitroglycerin 0.4 mg Q5MINP PRN SL 08/30/24 07:15 Morphine Sulfate 2 mg Q30M PRN IV 08/30/24 07:15 Hydralazine HCl 10 mg Q6HP PRN IV 08/30/24 07:45 08/30/24 22:24 10 MG Pantoprazole Sodium 40 mg DAILY@0600 PO 08/31/24 06:00 09/02/24 05:30 40 MG Nifedipine 30 mg DAILY PO 08/31/24 10:00 09/02/24 09:50 30 MG Ibuprofen 800 mg Q8HP PRN PO 09/01/24 14:30 Lorazepam 1 mg ONCE PRN IV 09/01/24 22:15 Laboratory Results Laboratory Tests 08/31/24 04:23 Urinalysis Test 08/30/24 06:05 Urine Color Light-yellow (Yellow) Urine Clarity Clear (Clear) Urine pH 5.0 (5.0-9.0) Urine Specific [place] 1.013 (1.001-1.035) Urine Protein Negative (Negative) Urine Ketones Negative (Negative) Urine Blood Negative /uL (Negative) Urine Nitrite Negative (Negative) Urine Bilirubin Negative (Negative) Urine Urobilinogen Normal mg/dL (Negative) Urine Leukocyte Esterase Negative /uL (Negative) Urine RBC None seen /hpf (0 - 4) Urine Microscopic WBC 1 /HPF (0-5) Urine Squamous Epithelial Cells None seen /hpf (<5) Urine Bacteria None seen /hpf (None Seen) Urine Mucus Few (None Seen) Urine Glucose Normal mg/dL (Normal) Labs and/or images reviewed: Labs reviewed by me, Image(s) reviewed by me Assessment/Plan Assessment/Plan Mook Carina is a 63-year-old female with no significant past medical history, who came to the hospital for high blood pressure. About 1 month ago the patient began experiencing headaches, bilateral ankle edema, and blurred vision. She went to her primary care provider and found that she was having high blood pressure, SBP in the 180's. Her primary care provider did not start her on any medications, she told her to make lifestyle changes and to stop all salt. Patient was reassessed in 1 and 2 weeks from there. After 2 weeks her blood pressure was improving with SBP in 150's and her symptoms were intermittent. Her primary care provider told her she was not going to start her on any medications and to continue with the lifestyle modifications. Yesterday her symptoms came back and were worse. She took her blood pressure and it was over SBP 200. She called her primary care provider and was told to come to the hospital. Uncontrolled hypertension, Dehydration, Intractable headache, dizziness, intractable 08/31/2024 pt to be monitored for her headache blood pressure is improving 09/01/2024 pt complains she is feeling more dizzy will consult neurology obtaining CT head w/o contrast 09/02/2024 discussed with pt (pt's at bedside) regarding MRI results pt agreed to be discharged new meds sent to local pharmacy Plan discussed with: Patient My Orders Orders - BARBIE SHANKAR DO Procedure Category Date Status Time Ibuprofen Tablet PHA 09/01/24 In Process (Motrin Tablet) 14:[address] 09/01/24 Resulted 14:55 * Neurology Consult CONS 09/01/24 Transmitted 14:58 Date of Service: Sep 02, 2024 Billing Provider: BARBIE SHANKAR DO Common Visit Codes: [id number] INP/OBS CARE(HIGH) BARBIE SHANKAR DO Sep 02, 2024 11:06
[2024-09-02 13:00] VITALS: BP 126/61; PULSE 88; RESP 20; TEMP 97.6; O2SAT 96
[2024-09-02] MEDS: MECLIZINE HCL 25 MG TAB PO PRN (13:12)
[2024-09-02] MEDS ORDERED: NAPR1TAB87 PO (13:39)
[2024-09-02] MEDS ORDERED: MECL-90 PO (13:39)
[2024-09-02] MEDS ORDERED: NIFE1TAB31 PO (13:39)
[2024-09-02] MEDS ORDERED: PANT40T PO (13:39)
--- NOTE | 2024-09-02 13:41 | DVHDS2 ---
Discharge Summary Date of Admission Aug 30, 2024 at 07:08 Date of Discharge: Sep 02, 2024 Labs/Diagnostic Data: Laboratory Results Test 08/31/24 04:23 08/30/24 06:05 08/30/24 05:14 White Blood Count 6.7 10^3/uL (4.4-10.8) Red Blood Count 4.23 10^6/uL (4.0-5.20) Hemoglobin 13.1 g/dL (12.2-16.2) Hematocrit 38.4 % (36.0-46.0) Mean Corpuscular Volume 90.7 fL (80.0-100.0) Mean Corpuscular Hemoglobin 30.9 pg (28.0-32.0) Mean Corpuscular Hemoglobin Concent 34.0 g/dL (32.0-36.0) Red Cell Distribution Width 13.2 % (11.8-14.3) Platelet Count 202 10^3/uL (140-450) Mean Platelet Volume 10.4 fL (6.9-10.8) Neutrophils (%) (Auto) 56.5 % (37.0-80.0) Lymphocytes (%) (Auto) 32.2 % (10.0-50.0) Monocytes (%) (Auto) 6.7 % (0.0-12.0) Eosinophils (%) (Auto) 3.7 % (0.0-7.0) Basophils (%) (Auto) 0.9 % (0.0-2.0) Neutrophils # (Auto) 3.8 10 ^3/uL (1.6-8.6) Lymphocytes # (Auto) 2.2 10 ^3/uL (0.4-5.4) Monocytes # (Auto) 0.4 10 ^3/uL (0-1.3) Eosinophils # (Auto) 0.3 10 ^3/uL (0-0.8) Basophils # (Auto) 0.1 10 ^3/uL (0-0.2) Nucleated Red Blood Cells 0.0 % Sodium Level 143 mmol/L (136-145) Potassium Level 3.9 mmol/L (3.5-5.1) Chloride Level 107 mmol/L (98-107) Carbon Dioxide Level 26 mmol/L (20-31) Anion Gap 10 (5-15) Blood Urea Nitrogen 17 mg/dL (9-23) Creatinine 0.85 mg/dL (0.550-1.02) Glomerular Filtration Rate Calc 78 mL/min (>90) BUN/Creatinine Ratio 20.0 (10.0-20.0) Serum Glucose 138 mg/dL (74-106) Calcium Level 9.7 mg/dL (8.7-10.4) Total Bilirubin 0.3 mg/dL (0.2-1.0) Aspartate Amino Transferase (AST) 23 U/L (13-40) Alanine Aminotransferase (ALT) 33 U/L (7-40) Alkaline Phosphatase 72 U/L (46-116) Total Protein 6.2 g/dL (5.7-8.2) Albumin 4.0 g/dL (3.2-4.8) Urine Color Light-yellow (Yellow) Urine Clarity Clear (Clear) Urine pH 5.0 (5.0-9.0) Urine Specific [place] 1.013 (1.001-1.035) Urine Protein Negative (Negative) Urine Ketones Negative (Negative) Urine Blood Negative /uL (Negative) Urine Nitrite Negative (Negative) Urine Bilirubin Negative (Negative) Urine Urobilinogen Normal mg/dL (Negative) Urine Leukocyte Esterase Negative /uL (Negative) Urine RBC None seen /hpf (0 - 4) Urine Microscopic WBC 1 /HPF (0-5) Urine Squamous Epithelial Cells None seen /hpf (<5) Urine Bacteria None seen /hpf (None Seen) Urine Mucus Few (None Seen) Urine Glucose Normal mg/dL (Normal) Troponin I High Sensitivity < 3 ng/L (</=34) Other Laboratory Tests 08/31/24 04:23 Brief Hx & Hospital Course: Carina Delvalle is a 63-year-old female with no significant past medical history, who came to the hospital for high blood pressure. About 1 month ago the patient began experiencing headaches, bilateral ankle edema, and blurred vision. She went to her primary care provider and found that she was having high blood pressure, SBP in the 180's. Her primary care provider did not start her on any medications, she told her to make lifestyle changes and to stop all salt. Patient was reassessed in 1 and 2 weeks from there. After 2 weeks her blood pressure was improving with SBP in 150's and her symptoms were intermittent. Her primary care provider told her she was not going to start her on any medications and to continue with the lifestyle modifications. Yesterday her symptoms came back and were worse. She took her blood pressure and it was over SBP 200. She called her primary care provider and was told to come to the hospital. Uncontrolled hypertension, Dehydration, Intractable headache, dizziness, intractable 08/31/2024 pt to be monitored for her headache blood pressure is improving 09/01/2024 pt complains she is feeling more dizzy will consult neurology obtaining CT head w/o contrast 09/02/2024 discussed with pt (pt's at bedside) regarding MRI results pt agreed to be discharged new meds sent to local pharmacy Condition at Discharge: Fair Final Diagnosis/Problems List see above Discharge Disposition: Home Discharge Instruct/Medications Diet: Cardiac 2g Na,low cholest Activity: No Restrictions, As Tolerated Scheduled Nifedipine (Nifedipine Er), 30 MG PO DAILY Pantoprazole Sodium Sesquihydr (Pantoprazole Sodium), 40 MG PO DAILY@0600 Scheduled PRN Meclizine Hcl (Meclizine Hcl), 25 MG PO [id number] PRN Naproxen Sodium (Naproxen Sodium), 500 MG PO BIDPRN PRN Discharge Statement: "Patient was advised to return to the ER or call 911 if any headaches, dizziness, shortness of breath, chest pain, abdominal pain, bleeding, fevers, or worsening of medical condition. Patient was counseled about treatment plan, medications, possible side effects, patientverbalized understanding. All questions were answered to the best of my ability. This discharge took greater then 30 minutes in planning, reviewing documentation, counseling the patient, and discussing with other team members." ASSESSMENT ASSESSMENT Assessment Date of Service: Sep 02, 2024 Billing Provider: BARBIE SHANKAR DO Common Visit Codes: [id number] DISCH DAY >30min BARBIE SHANKAR DO Sep 02, 2024 13:41
[2024-09-02 14:52] VITALS: BP 123/76; PULSE 78; RESP 18; TEMP 36.4; O2SAT 97
== END 2024-09-02 15:37 | disposition home or self-care (01) | DRG 77 ==
LOC: ER 00:36 → OVERFLOW 07:08 → TELE-CENTR 21:58
PROVIDERS: ADMIT Internal Medicine; ATTEND Internal Medicine
DX: I67.4 Hypertensive encephalopathy (principal); I67.83 Posterior reversible encephalopathy syndrome; I16.0 Hypertensive urgency; E86.0 Dehydration; I10 Essential (primary) hypertension; F17.210 Nicotine dependence, cigarettes, uncomplicated; Z82.49 Family history of ischemic heart disease and other diseases of the circulatory system; Z83.3 Family history of diabetes mellitus
CPT/HCPCS: 36415; 70450; 70551; 71045; 80053; 81001; 84484; 85025; 93005; 93306; G0378; J1885; J2470